=== PATIENT | female | born 1975 | race Caucasian/White ===

== ENCOUNTER 2017-05-16 09:54 | Day surgery (SDC) | payer BC ==
[2017-05-16] MEDS: POLYMYXIN/BACITRACIN 1L IRRIG (11:58)
[2017-05-16] MEDS: BUPIVACAINE 0.25% (MPF) 30 ML INJ (11:58)
[2017-05-16] MEDS ORDERED: ROCURONIUM 50 MG INJ (12:51)
[2017-05-16] MEDS ORDERED: SUCCINYLCHOLINE CHLORIDE 100 MG/5 ML SYG IV (12:51)
[2017-05-16] MEDS ORDERED: PROPOFOL 20 ML (12:51)
[2017-05-16] MEDS ORDERED: LIDOCAINE 1% (MDV) 20 ML INJ (12:51)
[2017-05-16] MEDS ORDERED: MIDAZOLAM 1 MG/ML 2 ML INJ (12:51)
[2017-05-16] MEDS ORDERED: FENTAnyl 50 MCG/ML VIAL (13:05)
[2017-05-16] MEDS ORDERED: DEXAMETHASONE 4 MG/ML 1 ML INJ (13:10)
[2017-05-16] MEDS ORDERED: ONDANSETRON 4 MG INJ (13:10)
[2017-05-16] MEDS ORDERED: FAMOTIDINE 20 MG INJ (13:10)
[2017-05-16] MEDS ORDERED: ROPIVACAINE 0.5 % 30 ML VIAL ×2 (13:16→13:33)
[2017-05-16] MEDS ORDERED: CEFAZOLIN 1 GM INJ (13:20)
[2017-05-16] MEDS ORDERED: ACETAMINOPHEN 1000MG/100ML IV 100 ML (13:25)
[2017-05-16] MEDS ORDERED: SUGAMMADEX SODIUM 200 MG/2 ML VIAL IV (13:37)
[2017-05-16] MEDS ORDERED: KETOROLAC 30 MG INJ (13:39)
[2017-05-16] MEDS ORDERED: DIPHENHYDRAMINE 50 MG INJ IV (14:30)
[2017-05-16] MEDS ORDERED: HYDROmorphONE (0.2 MG/ML) 10ML SYG IV ×3 (14:30)
[2017-05-16] MEDS ORDERED: FENTAnyl 50 MCG/ML VIAL IV ×2 (14:30)
[2017-05-16] MEDS ORDERED: ONDANSETRON 4 MG INJ IV (14:30)
[2017-05-16] MEDS ORDERED: OXYCODONE/ACETAMINOPHEN (5/325) TAB PO (14:30)
[2017-05-16] MEDS ORDERED: MEPERIDINE 25 MG INJ IV (14:30)
[2017-05-16] MEDS ORDERED: PROCHLORPERAZINE 10 MG INJ IV (14:30)
[2017-05-16] MEDS: FENTAnyl 50 MCG/ML VIAL IV (14:44)
[2017-05-16] MEDS: HYDROCODONE/APAP (5/325) TAB PO (15:33)
== END 2017-05-16 16:18 | disposition home or self-care (01) ==
LOC: SDS 09:54
DX: K43.9 Ventral hernia without obstruction or gangrene (principal); E66.9 Obesity, unspecified; Z68.31 Body mass index [BMI] 31.0-31.9, adult; Z88.0 Allergy status to penicillin
CPT/HCPCS: 49652; 84703